=== PATIENT | female | born 1995 | race Caucasian/White ===

== ENCOUNTER 2018-06-26 11:38 | Emergency (ER) | payer BC ==
--- NOTE | 2018-06-26 14:06 | EDPHYS ---
Physician Documentation [facility] Name: Aisha Cristobal Age: 23 yrs Sex: Female : 1995 Arrival Date: 06/26/2018 Time: 11:41 Bed 10 Private MD: None, None ED Physician Florentino Gutierrez HPI: 06/26 14:02 This 23 yrs old Female presents to ER via Ambulatory with complaints of Flu jmm Symptoms. 14:02 The patient or guardian reports cough. Onset: The symptoms/episode began/occurred jmm gradually, 4 day(s) ago. Modifying factors: The symptoms are alleviated by nothing. the symptoms are aggravated by nothing. Associated signs and symptoms: Pertinent positives: sore throat. 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 - Social history:: Smoking status: Patient uses tobacco products, denies chronic smoking, but will smoke occasionally. - Ebola Screening: : Patient negative for fever greater than or equal to 101.5 degrees Fahrenheit, and additional compatible Ebola Virus Disease symptoms Patient denies exposure to infectious person Patient denies travel to an Ebola-affected area in the 21 days before illness onset No symptoms or risks identified at this time. ROS: 14:02 Eyes: Negative for injury, pain, redness, and discharge. jmm 14:02 Neck: Negative for injury, pain, and swelling, Cardiovascular: Negative for chest pain, palpitations, and edema. 14:02 Constitutional: Positive for body aches. 14:02 ENT: Positive for sore throat. 14:02 Respiratory: Positive for cough. 14:02 All other systems are negative. Exam: 14:02 Head/Face: atraumatic. Eyes: EOMI, no conjunctival erythema appreciated jmm 14:02 Constitutional: The patient appears in no acute distress, alert, awake. 14:02 ENT: TM's: erythema, that is moderate, on the left. 14:02 Neck: ROM/movement: is normal. 14:02 Chest/axilla: 14:02 Cardiovascular: Rate: normal, Rhythm: regular, Pulses: no pulse deficits are appreciated. 14:02 Respiratory: the patient does not display signs of respiratory distress, Respirations: normal, Breath sounds: are clear throughout. 14:02 Abdomen/GI: 14:02 Back: ROM is normal. 14:02 Musculoskeletal/extremity: ROM: intact in all extremities. 14:02 Skin: Appearance: Color: normal in color. 14:02 Neuro: Orientation: is normal, Mentation: is normal, Memory: is normal. 14:02 Psych: Behavior/mood is pleasant, cooperative. Vital Signs: 11:56 BP 124 / 71; Pulse 79; Resp 16; Temp 97.5; Pulse Ox 100% ; Weight 72.57 kg; Height 5 iw ft. 2 in. (157.48 cm); Pain 0/10; 11:56 Body Mass Index 29.26 (72.57 kg, 157.48 cm) iw MDM: 14:02 Patient medically screened. [facility] 14:02 Differential diagnosis: bronchitis, flu, URI, om. Data reviewed: vital signs, nurses [facility] notes. Data interpreted: Pulse oximetry: on room air is 100 %. Interpretation: normal. Counseling: I had a detailed discussion with the patient and/or guardian regarding: the historical points, exam findings, and any diagnostic results supporting the discharge/admit diagnosis, the need for outpatient follow up, to return to the emergency department if symptoms worsen or persist or if there are any questions or concerns that arise at home. 06/26 13:39 Order name: Flu; Complete Time: 18:03 ss Administered Medications: No medications were administered Disposition: 16:40 Co-signature as Attending Physician, Florentino Gutierrez MD. rn Disposition: 06/26/18 14:05 Discharged to Home. Impression: Acute serous otitis media, left ear, Acute upper respiratory infection, unspecified. - Condition is Stable. - Discharge Instructions: Otitis Media, Adult, Upper Respiratory Infection, Adult. - Prescriptions for promethazine- DM - take 5 milliliter by ORAL route every 4-6 hours; 120 milliliter. Zithromax Z- Lee 250 mg Oral Tablet - take 1 tablet by ORAL route as directed for 5 days Day 1 - take two (2) tablets one time. Day 2, 3, 4 , 5 take one (1) tablet once daily.; 6 tablet. - Work release form, Medication Reconciliation Form, Thank You Letter, Antibiotic Education, Prescription Opioid Use form. - Follow up: Private Physician; When: 2 - 3 days; Reason: Recheck today's complaints, Continuance of care, Re-evaluation by your physician. Signatures: Dispatcher [employer] EDFer Lobato RN RN Joe Dorado PA PA jmm Williams, Irene, RN RN iw Nieto, Roman, MD MD internal communications writer: (The following items were deleted from the chart) 14:24 14:05 06/26/2018 14:05 Discharged to Home. Impression: Acute serous otitis media, left sg ear; Acute upper respiratory infection, unspecified. Condition is Stable. Forms are Medication Reconciliation Form, Thank You Letter, Antibiotic Education, Prescription Opioid Use. Follow up: Private Physician; When: 2 - 3 days; Reason: Recheck today's complaints, Continuance of care, Re-evaluation by your physician. belkis
--- NOTE | 2018-06-26 14:06 | ER ---
Nurse's Notes [facility] Name: Aisha Cristobal Age: 23 yrs Sex: Female : 1995 Arrival Date: 06/26/2018 Time: 11:41 Bed 10 Private MD: None, None Diagnosis: Acute serous otitis media, left ear;Acute upper respiratory infection, unspecified Presentation: 06/26 11:55 Presenting complaint: Patient states: sore throat, congestion, subj fever, watery eyes iw X 4 days. Transition of care: patient was not received from another setting of care. Onset of symptoms was June 22, 2018. Risk Assessment: Do you want to hurt yourself or someone else? Patient reports no desire to harm self or others. Initial Sepsis Screen: Does the patient meet any 2 criteria? No. Patient's initial sepsis screen is negative. Does the patient have a suspected source of infection? No. Patient's initial sepsis screen is negative. Care prior to arrival: None. 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 - Social history:: Smoking status: Patient uses tobacco products, denies chronic smoking, but will smoke occasionally. - Ebola Screening: : Patient negative for fever greater than or equal to 101.5 degrees Fahrenheit, and additional compatible Ebola Virus Disease symptoms Patient denies exposure to infectious person Patient denies travel to an Ebola-affected area in the 21 days before illness onset No symptoms or risks identified at this time. Screenin:40 Abuse screen: Denies threats or abuse. Denies injuries from another. Nutritional sg screening: No deficits noted. Tuberculosis screening: No symptoms or risk factors identified. Never had TB. Fall Risk None identified. Assessment: 13:40 General: Appears in no apparent distress. comfortable, well groomed, well developed, sg well nourished, Behavior is calm, cooperative, appropriate for age. Pain: Complains of pain in body aches. Neuro: No deficits noted. Cardiovascular: No deficits noted. Patient's skin is warm and dry. Respiratory: Airway is patent Respiratory effort is even, unlabored, Respiratory pattern is regular, symmetrical. GI: No signs and/or symptoms were reported involving the gastrointestinal system. : No signs and/or symptoms were reported regarding the genitourinary system. EENT: Nares are clear bilaterally Oral mucosa is moist. Throat is clear. Derm: No signs and/or symptoms reported regarding the dermatologic system. Skin is pink, warm \T\ dry. Musculoskeletal: Circulation, motion, and sensation intact. Range of motion: intact in all extremities, Swelling absent. Vital Signs: 11:56 BP 124 / 71; Pulse 79; Resp 16; Temp 97.5; Pulse Ox 100% ; Weight 72.57 kg; Height 5 iw ft. 2 in. (157.48 cm); Pain 0/10; 11:56 Body Mass Index 29.26 (72.57 kg, 157.48 cm) ED Course: 11:41 Patient arrived in ED. sb2 11:42 None, None is Private Physician. sb2 11:56 Triage completed. iw 11:56 Arm band placed on. iw 13:31 Joe Pena PA is PHCP. [facility] 13:31 Florentino Gutierrez MD is Attending Physician. [facility] 13:40 Patient has correct armband on for positive identification. Bed in low position. Call sg light in reach. Side rails up X2. Pulse ox on. NIBP on. 13:40 No provider procedures requiring assistance completed. Patient did not have IV access sg during this emergency room visit. 13:43 Fer Felix, RN is Primary Nurse. sg 13:43 Flu and/or RSV swab sent to lab. sg Administered Medications: No medications were administered Outcome: 14:05 Discharge ordered by . belkis 14:20 Discharged to home ambulatory, with family. sg 14:20 Condition: good 14:20 Discharge instructions given to patient, Instructed on discharge instructions, follow up and referral plans. safety practices, Demonstrated understanding of instructions, follow-up care, medications, Prescriptions given X 1. 14:24 Patient left the ED. sg Signatures: Fer Felix RN RN sg Mickail, Joel, PA PA jmm Williams, Irene, RN RN Jennifer Okeefe sb2
== END 2018-06-26 14:24 | disposition home or self-care (01) ==
LOC: ER 11:38
DX: J06.9 Acute upper respiratory infection, unspecified (principal); H65.02 Acute serous otitis media, left ear; Z72.0 Tobacco use
CPT/HCPCS: 87804; 99283

== ENCOUNTER 2020-09-09 03:16 | Emergency (ER) | payer BC ==
--- NOTE | 2020-09-09 04:19 | EDPHYS ---
Physician Documentation [facility] Name: Aisha Cristobal Age: 25 yrs Sex: Female : 1995 Arrival Date: 09/09/2020 Time: 03:17 Bed 18 Private MD: ED Physician Danna Edward HPI: 09/09 04:16 This 25 yrs old Female presents to ER via Ambulatory with complaints of ma2 Breathing Difficulty. 04:16 The patient has shortness of breath during heavy activity. Onset: The symptoms/episode ma2 began/occurred gradually, 2 month(s) ago. Associated signs and symptoms: Pertinent negatives: dizziness, hemoptysis, loss of consciousness, nausea. Severity of symptoms: At their worst the symptoms were very mild in the emergency department the symptoms are unchanged. The patient has experienced similar episodes in the past. 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 - Social history:: Patient/guardian denies using alcohol, street drugs, The patient lives with family, Smoking status: Patient reports the use of cigarette tobacco products, smokes one pack cigarettes per day. Patient uses street drugs, marijuana. - Family history:: not pertinent. ROS: 04:16 Constitutional: Negative for fever, chills, and weight loss, Eyes: Negative for injury, ma2 pain, redness, and discharge. 04:16 All other systems are negative. Exam: 04:16 Constitutional: This is a well developed, well nourished patient who is awake, alert, ma2 and in no acute distress. Head/Face: Normocephalic, atraumatic. Eyes: Pupils equal round and reactive to light, extra-ocular motions intact. Lids and lashes normal. Conjunctiva and sclera are non-icteric and not injected. Cornea within normal limits. Periorbital areas with no swelling, redness, or edema. ENT: Nares patent. No nasal discharge, no septal abnormalities noted. Tympanic membranes are normal and external auditory canals are clear. Oropharynx with no redness, swelling, or masses, exudates, or evidence of obstruction, uvula midline. Mucous membranes moist. Neck: Trachea midline, no thyromegaly or masses palpated, and no cervical lymphadenopathy. Supple, full range of motion without nuchal rigidity, or vertebral point tenderness. No Meningismus. Chest/axilla: Normal chest wall appearance and motion. Nontender with no deformity. No lesions are appreciated. Cardiovascular: Regular rate and rhythm with a normal S1 and S2. No gallops, murmurs, or rubs. Normal PMI, no JVD. No pulse deficits. Respiratory: expiratory wheeze, Lungs have equal breath sounds bilaterally, clear to auscultation and percussion. No rales, rhonchi noted. No increased work of breathing, no retractions or nasal flaring. Abdomen/GI: Soft, non-tender, with normal bowel sounds. No distension or tympany. No guarding or rebound. No evidence of tenderness throughout. Back: No spinal tenderness. No costovertebral tenderness. Full range of motion. Skin: Warm, dry with normal turgor. Normal color with no rashes, no lesions, and no evidence of cellulitis. MS/ Extremity: Pulses equal, no cyanosis. Neurovascular intact. Full, normal range of motion. Neuro: Awake and alert, GCS 15, oriented to person, place, time, and situation. Cranial nerves II-XII grossly intact. Motor strength 5/5 in all extremities. Sensory grossly intact. Cerebellar exam normal. Normal gait. Vital Signs: 03:40 Weight 90.72 kg (R); Height 5 ft. 6 in. (167.64 cm) (R); sg 03:44 Pulse 71 MON; Resp 18 S; Temp 98.6(O); Pulse Ox 98% on R/A; sf 03:46 BP 105 / 42; sf 03:40 Body Mass Index 32.28 (90.72 kg, 167.64 cm) sg MDM: 03:46 Patient medically screened. ma2 04:16 Differential diagnosis: Anemia Anxiety Reaction asthma, reactive airway disease. Data ma2 reviewed: vital signs, nurses notes. Counseling: I had a detailed discussion with the patient and/or guardian regarding: the historical points, exam findings, and any diagnostic results supporting the discharge/admit diagnosis, the presence of at least one elevated blood pressure reading (>120/80) during this emergency department visit, the need for outpatient follow up. Response to treatment: the patient's symptoms have markedly improved after treatment. Administered Medications: 04:22 Drug: Albuterol HFA Inhaler 2 puffs Route: Inhalation; sf 04:33 Follow up: Response: No adverse reaction sf 04:25 Drug: predniSONE 40 mg Route: PO; sf 04:33 Follow up: Response: No adverse reaction sf Disposition: 09/09/20 04:18 Discharged to Home. Impression: Asthma. - Condition is Stable. - Discharge Instructions: Asthma, Adult, [id number]-[id number]. - Prescriptions for Medrol (Lee) 4 mg Oral Tablets, Dose Pack - take 1 tablet by ORAL route as directed - follow package instructions; 1 packet. Albuterol Sulfate 90 mcg/actuation - inhale 1-2 puff by INHALATION route every 4-6 hours; 1 Inhaler. - Medication Reconciliation Form, Thank You Letter, Antibiotic Education, Prescription Opioid Use form. - Follow up: Private Physician; When: Tomorrow; Reason: If symptoms return, Continuance of care. Signatures: Fer Felix RN RN Danna Edward MD MD ma2 Fer Claros RN RN sf Corrections: (The following items were deleted from the chart) 04:34 04:18 09/09/2020 04:18 Discharged to Home. Impression: Asthma. Condition is Stable. sf Forms are Medication Reconciliation Form, Thank You Letter, Antibiotic Education, Prescription Opioid Use. Follow up: Private Physician; When: Tomorrow; Reason: If symptoms return, Continuance of care. ma2
--- NOTE | 2020-09-09 04:19 | ER ---
Nurse's Notes [facility] Name: Aisha Cristobal Age: 25 yrs Sex: Female : 1995 Arrival Date: 09/09/2020 Time: 03:17 Bed 18 Private MD: Diagnosis: Asthma Presentation: 09/09 03:30 Chief complaint: Patient states: Erin been having wheezing and shortness of breath for 2 sg days now, no other symptoms reported for triage at this time. Coronavirus screen: Client denies travel out of the [place] in the last 14 days. Client presents with at least one sign or symptom that may indicate coronavirus-19. Standard/surgical mask placed on the client. Provider contacted for isolation considerations. The client denies any previous COVID testing. Ebola Screen: Patient negative for fever greater than or equal to 101.5 degrees Fahrenheit, and additional compatible Ebola Virus Disease symptoms Patient denies exposure to infectious person. Patient denies travel to an Ebola-affected area in the 21 days before illness onset. No symptoms or risks identified at this time. Initial Sepsis Screen: Does the patient meet any 2 criteria? No. Patient's initial sepsis screen is negative. Does the patient have a suspected source of infection? Yes: Productive cough/pneumonia. Risk Assessment: Do you want to hurt yourself or someone else? Patient reports no desire to harm self or others. Onset of symptoms was September 09, 2020. Care prior to arrival: None. Transition of care: patient was not received from another setting of care. 03:30 Acuity: DOROTHY 3 sg 03:30 Method Of Arrival: Ambulatory sg Triage Assessment: 03:45 Respiratory: Onset: The symptoms/episode began/occurred over the last couple weeks. 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 - Social history:: Patient/guardian denies using alcohol, street drugs, The patient lives with family, Smoking status: Patient reports the use of cigarette tobacco products, smokes one pack cigarettes per day. Patient uses street drugs, marijuana. - Family history:: not pertinent. Screenin:54 Abuse screen: Denies threats or abuse. Denies injuries from another. Nutritional sf screening: No deficits noted. Tuberculosis screening: No symptoms or risk factors identified. Never had TB. Possible symptoms: cough for more than 2 weeks, Risk factors: None. Fall Risk None identified. No fall in past 12 months (0 pts). No secondary diagnosis (0 pts). No IV (0 pts). Ambulatory Aid- None/Bed Rest/Nurse Assist (0 pts). Gait- Normal/Bed Rest/Wheelchair (0 pts) Mental Status- Oriented to own ability (0 pts). Total Zacarias Fall Scale indicates No Risk (0-24 pts). Assessment: 03:45 General: Appears in no apparent distress. uncomfortable, Behavior is calm, cooperative, sf appropriate for age, Denies fever, chills. Pain: Denies pain. Neuro: No deficits noted. Level of Consciousness is awake, alert, Oriented to person, place, time, situation, Appropriate for age. Cardiovascular: No deficits noted. Denies chest pain, palpitations, Capillary refill < 3 seconds Patient's skin is warm and dry. Rhythm is sinus rhythm. Respiratory: Reports shortness of breath at rest cough that is non-productive, dry, Airway is patent Respiratory effort is even, increased work of breathing Breath sounds with wheezes bilaterally. the patient has mild shortness of breath Denies pain with respiration, pain with cough. Vital Signs: 03:40 Weight 90.72 kg (R); Height 5 ft. 6 in. (167.64 cm) (R); sg 03:44 Pulse 71 MON; Resp 18 S; Temp 98.6(O); Pulse Ox 98% on R/A; sf 03:46 BP 105 / 42; sf 03:40 Body Mass Index 32.28 (90.72 kg, 167.64 cm) sg ED Course: 03:17 Patient arrived in ED. cf2 03:30 Arm band placed on. sg 03:34 Fer Claros, CARO is Primary Nurse. sf 03:35 Bed in low position. Call light in reach. Side rails up X 1. color television console monitor on. Pulse sf ox on. NIBP on. 03:40 Triage completed. sg 03:46 Danna Edward MD is Attending Physician. ma2 04:32 No provider procedures requiring assistance completed. Patient did not have IV access sf during this emergency room visit. Administered Medications: 04:22 Drug: Albuterol HFA Inhaler 2 puffs Route: Inhalation; sf 04:33 Follow up: Response: No adverse reaction sf 04:25 Drug: predniSONE 40 mg Route: PO; sf 04:33 Follow up: Response: No adverse reaction sf Outcome: 04:18 Discharge ordered by . ma2 04:33 Discharged to home ambulatory. sf 04:33 Condition: improved 04:33 Discharge instructions given to patient, Instructed on discharge instructions, follow up and referral plans. medication usage, Demonstrated understanding of instructions, follow-up care, medications, Prescriptions given X 2. 04:34 Patient left the ED. sf Signatures: Fer Felix, CARO RN Danna Edward MD MD [facility] Riley Marquez [facility] Fer Claros RN RN sf Corrections: (The following items were deleted from the chart) 03:53 03:45 : sf sf
[2020-09-09] MEDS ORDERED: predniSONE 20 MG TAB ONE (04:37)
[2020-09-09] MEDS ORDERED: ALBUTEROL INHALER 60 PUFF/8 GM IH ONE (04:37)
[2020-09-09 04:40] VITALS: TEMP 98.6; O2SAT 98
[2020-09-09 04:41] VITALS: BP 105/42
--- OUTSIDE RECORDS SUMMARY | 2020-09-10 02:41 | XMS REPORT | Continuity of Care Document ---
:1995 Author Organization [facility] t Address [address] [place] [address] Care Team Providers Name Role Phone Unavailable Unavailable Unavailable Payers Payer Name Policy Type Policy Number Effective Date Expiration Date S ource Problems This patient has no known problems. Allergies, Adverse Reactions, Alerts Allergy Allergy Status Severity Reaction(s) Onset Inactive Treating Comm ents Source Name Type Date Date Clinician [place] DA Active U 2018-08 [facility] ins 08-19 [facility] 00:00: e 00 [facility] Medications This patient has no known medications. Procedures This patient has no known procedures. Results Test Description Test Time Test Comments Results Result Comments Source URINALYSIS COMPLETE 2019-06-19 21:31:00 Test Item Value Reference Range Interpretation Comme nts UA COLOR (test code = COLU) YELLOW YELLOW UA APPEARANCE (test code = APPU) Cloudy CLEAR A UA GLUCOSE DIPSTICK (test code = DGLUU) NEGATIVE mg/dL NEGATIVE UA BILIRUBIN DIPSTICK (test code = BILU) NEGATIVE mg/dL NEGATIVE UA KETONE DIPSTICK (test code = KETU) NEGATIVE mg/dL NEGATIVE UA SPECIFIC GRAVITY (test code = SGU) 1.020 1.001-1.035 UA BLOOD DIPSTICK (test code = RESHMA) 0.03 mg/dL (Trace) mg/dL NEGATI VE A UA PH DIPSTICK (test code = DYLON) 6.5 5.0-8.0 UA PROTEIN DIPSTICK (test code = PROU) 20 (Trace) mg/dL NEGATIVE A UA UROBILINIOGEN DIPSTICK (test code = URO) Normal mg/dL NEGATIVE UA NITRITE DIPSTICK (test code = RODERICK) NEGATIVE NEGATIVE UA LEUKOCYTE ESTERASE W REFLEX (test code = 500 Haley/uL (3+) Haley/uL NEGATIVE A LEUUR) UA WBC (test code = WBCU) 101-150 per HPF 0-5 A UA RBC (test code = RBCU) 21-50 #/HPF 0-5 UA EPITHELIAL CELLS (test code = EPIU) MANY per HPF FEW UA BACTERIA (test code = BACU) MODERATE #/HPF NONE A UA MUCUS (test code = MUCU) FEW #/LPF FEW Urine Source? Clean CatchDRUGS OF ABUSE SCREEN [id number] 21:31:00 Test Item Value Reference Range Interpretation Comments URN COCAINE (test NEGATIVE <300 ng/mL code = COCAURN) URN CANNABINOIDS POSITIVE <50 ng/mL A This test p rovides only a (test code = preliminary mady t result. CANNABURN) A morespecific alternate chemical method must be used in order t oobtain a confirmed kelly tical result. Gas chromatography/ mass spectrometry (G C/MS) is thepreferred co nfirmatory method. Other chemical confirmationmet hods are available. Cli nical consideration a nd professional ju dgment should be appli ed to any drug of abusete st result, particularly wh en preliminary pos itive resultsare used.Unconfirme d screening resul ts must not be used fornon-medical purposes (e.g., employme nt testing, legalt esting). URN AMPHETAMINE (test NEGATIVE <1000 ng/mL code = AMPHETURN) URN BARBITURATE (test NEGATIVE <200 ng/mL code = BARBITURN) URN BENZODIAZEPINE NEGATIVE <200 ng/mL (test code = BENZOURN) URN OPIATES (test NEGATIVE <300 ng/mL code = OPIATURN) URN PHENCYCLIDINE NEGATIVE <25 ng/mL (PCP) (test code = PHENCURN) URN METHADONE (test NEGATIVE <300 ng/mL code = METHAURN) Urine Source? Clean CatchBASIC METABOLIC [id number] 21:09:00 Test Item Value Reference Range Interpretation Comments SODIUM (test code = 138 mmol/L 136-145 N NA) POTASSIUM (test code 3.8 mmol/L 3.5-5.1 N = K) CHLORIDE (test code = 106.0 mmol/L 98-107 N CL) CARBON DIOXIDE (test 24.0 mmol/L 21-32 N code = CO2) ANION GAP (test code 11.8 10-20 N = GAP) GLUCOSE (test code = 91 mg/dL 74-106 N GLU) BLOOD UREA NITROGEN 15 mg/dL 7-18 N (test code = BUN) GLOMERULAR FILTRATION > 60 mL/min >=60 Estima quynh GFR by RATE (test code = using Elizabeth fied MDRD GFR) formula.Chronic kidney disease is defined as eith er kidney damageor GFR <60 mL/min/1.73 m2 for >3 months. CREATININE (test code 0.70 mg/dL 0.55-1.02 N Note change in = CREAT) reference range due to change in reagent. BUN/CREATININE RATIO 20.4 10-20 H (test code = BUN/CREA) CALCIUM (test code = 9.3 mg/dL 8.5-10.1 N CA) HEPATIC FUNCTION [id number] 21:09:00 Test Item Value Reference Range Interpretation Comments TOTAL PROTEIN (test 8.1 gram/dL 6.4-8.2 N code = PROT) ALBUMIN (test code = 3.9 g/dL 3.4-5.0 N ALB) GLOBULIN (test code = 4.2 gram/dL 2.7-4.2 N GLOB) ALBUMIN/GLOBULIN RATIO 0.9 0.75-1.50 N (test code = A/G) BILIRUBIN TOTAL (test 0.40 mg/dL 0.0-1.0 N code = BILT) BILIRUBIN DIRECT (test 0.11 mg/dL 0.0-0.20 N code = BILD) SGOT/AST (test code = 81 IUnit/L 15-37 H AST) SGPT/ALT (test code = 102 IUnit/L 12-78 H ALT) ALKALINE PHOSPHATASE 124 IUnit/L 45-117 H Note change in TOTAL (test code = reference range due ALKP) to change in reagent. [id number] 21:09:00 Test Item Value Reference Range Interpretation Comments ALCOHOL (test code = 6 mg/dL 0.0-3.0 H ------- INTERPRET ALC) TOREY DATA NOTE: POSITIVE SCREEN ING RESULTS SHOULD BE CONSI DERED PRESUMPTIVE.WHE N COLLECTED FOR MEDICAL PUR POSES ONLY. SPECIMEN WILL NOTBE COLLECTED BY AIN OF CUSTODY.IF A CO NFIRMATION OF POSITIVE RES ULTS IS DESIRED, ACONFI RMATION TEST MUST BE RE QUESTED BY THE PHYSICIAN Tammie T ANADDITIONAL [place] ARGE TO THE PATIENT. HCG SERUM [id number] 21:09:00 Test Item Value Reference Range Interpretation Comments HCG SERUM QUAL (test NEGATIVE NEGATIVE This HC GQL test is NOT code = HCGQL) applicable for MALE patients.Check with nurse about probable order error.If Tumor Marker Test needed, nu rse should order test "HCG TU"(Test #550.20649)---- - BASIC METABOLIC [id number] 20:56:00 Test Item Value Reference Range Interpretation Comments SODIUM (test code = NA) 138 mmol/L 136-145 N POTASSIUM (test code = K) 3.8 mmol/L 3.5-5.1 N CHLORIDE (test code = CL) 106.0 mmol/L 98-107 N CARBON DIOXIDE (test code = CO2) mmol/L 21-32 ANION GAP (test code = GAP) 10-20 GLUCOSE (test code = GLU) mg/dL 74-106 BLOOD UREA NITROGEN (test code = mg/dL 7-18 BUN) GLOMERULAR FILTRATION RATE (test mL/min >=60 code = GFR) CREATININE (test code = CREAT) mg/dL 0.55-1.02 BUN/CREATININE RATIO (test code 10-20 = BUN/CREA) CALCIUM (test code = CA) mg/dL 8.5-10.1 HEPATIC FUNCTION [id number] 20:56:00 Test Item Value Reference Range Interpretation Comments TOTAL PROTEIN (test code = PROT) gram/dL 6.4-8.2 ALBUMIN (test code = ALB) g/dL 3.4-5.0 GLOBULIN (test code = GLOB) gram/dL 2.7-4.2 ALBUMIN/GLOBULIN RATIO (test code = 0.75-1.50 A/G) BILIRUBIN TOTAL (test code = BILT) mg/dL 0.0-1.0 BILIRUBIN DIRECT (test code = BILD) mg/dL 0.0-0.20 SGOT/AST (test code = AST) IUnit/L 15-37 SGPT/ALT (test code = ALT) IUnit/L 12-78 ALKALINE PHOSPHATASE TOTAL (test IUnit/L 45-117 code = ALKP) [id number] 20:56:00 Test Item Value Reference Range Interpretation Comments ALCOHOL (test code = ALC) mg/dL 0-3 URINALYSIS [id number] 20:55:00 Test Item Value Reference Range Interpretation Comments UA COLOR (test code = YELLOW YELLOW COLU) UA APPEARANCE (test code Cloudy CLEAR A = APPU) UA GLUCOSE DIPSTICK (test NEGATIVE mg/dL NEGATIVE code = DGLUU) UA BILIRUBIN DIPSTICK NEGATIVE mg/dL NEGATIVE (test code = BILU) UA KETONE DIPSTICK (test NEGATIVE mg/dL NEGATIVE code = KETU) UA SPECIFIC GRAVITY (test 1.020 1.001-1.035 code = SGU) UA BLOOD DIPSTICK (test 0.03 mg/dL (Trace) NEGATIVE A code = RESHMA) mg/dL UA PH DIPSTICK (test code 6.5 5.0-8.0 = DYLON) UA PROTEIN DIPSTICK (test 20 (Trace) mg/dL NEGATIVE A code = PROU) UA UROBILINIOGEN DIPSTICK Normal mg/dL NEGATIVE (test code = URO) UA NITRITE DIPSTICK (test NEGATIVE NEGATIVE code = RODERICK) UA LEUKOCYTE ESTERASE W 500 Haley/uL (3+) NEGATIVE A REFLEX (test code = Haley/uL LEUUR) UA WBC (test code = WBCU) 101-150 per HPF 0-5 A UA RBC (test code = RBCU) 21-50 #/HPF 0-5 UA EPITHELIAL CELLS (test MANY per HPF FEW code = EPIU) UA BACTERIA (test code = MODERATE #/HPF NONE A BACU) UA MUCUS (test code = FEW #/LPF FEW MUCU) Urine Source? Clean CatchDRUGS OF ABUSE SCREEN [id number] 20:55:00 Test Item Value Reference Range Interpretation Comments URN COCAINE (test code = COCAURN) <300 ng/mL URN CANNABINOIDS (test code = <50 ng/mL CANNABURN) URN AMPHETAMINE (test code = AMPHETURN) <1000 ng/mL URN BARBITURATE (test code = BARBITURN) <200 ng/mL URN BENZODIAZEPINE (test code = <200 ng/mL BENZOURN) URN OPIATES (test code = OPIATURN) <300 ng/mL URN PHENCYCLIDINE (PCP) (test code = <25 ng/mL PHENCURN) URN METHADONE (test code = METHAURN) <300 ng/mL Urine Source? Clean CatchURINALYSIS [id number] 20:53:00 Test Item Value Reference Range Interpretation Comments UA COLOR (test code = YELLOW YELLOW COLU) UA APPEARANCE (test code Cloudy CLEAR A = APPU) UA GLUCOSE DIPSTICK (test NEGATIVE mg/dL NEGATIVE code = DGLUU) UA BILIRUBIN DIPSTICK NEGATIVE mg/dL NEGATIVE (test code = BILU) UA KETONE DIPSTICK (test NEGATIVE mg/dL NEGATIVE code = KETU) UA SPECIFIC GRAVITY (test 1.020 1.001-1.035 code = SGU) UA BLOOD DIPSTICK (test 0.03 mg/dL (Trace) NEGATIVE A code = RESHMA) mg/dL UA PH DIPSTICK (test code 6.5 5.0-8.0 = DYLON) UA PROTEIN DIPSTICK (test 20 (Trace) mg/dL NEGATIVE A code = PROU) UA UROBILINIOGEN DIPSTICK Normal mg/dL NEGATIVE (test code = URO) UA NITRITE DIPSTICK (test NEGATIVE NEGATIVE code = RODERICK) UA LEUKOCYTE ESTERASE W 500 Haley/uL (3+) NEGATIVE A REFLEX (test code = Haley/uL LEUUR) UA WBC (test code = WBCU) per HPF 0-5 UA RBC (test code = RBCU) per HPF 0-5 UA EPITHELIAL CELLS (test per HPF Few code = EPIU) UA BACTERIA (test code = per HPF NONE BACU) Urine Source? Clean CatchDRUGS OF ABUSE SCREEN [id number] 20:53:00 Test Item Value Reference Range Interpretation Comments URN COCAINE (test code = COCAURN) <300 ng/mL URN CANNABINOIDS (test code = <50 ng/mL CANNABURN) URN AMPHETAMINE (test code = AMPHETURN) <1000 ng/mL URN BARBITURATE (test code = BARBITURN) <200 ng/mL URN BENZODIAZEPINE (test code = <200 ng/mL BENZOURN) URN OPIATES (test code = OPIATURN) <300 ng/mL URN PHENCYCLIDINE (PCP) (test code = <25 ng/mL PHENCURN) URN METHADONE (test code = METHAURN) <300 ng/mL Urine Source? Clean CatchCBC W/O [id number] 20:50:00 Test Item Value Reference Range Interpretation Comments WHITE BLOOD CELL (test code = K/mm3 4.5-12.5 WBC) RED BLOOD CELL (test code = RBC) mill/mm3 3.7-5.2 HEMOGLOBIN (test code = HGB) 12.5 gram/dL 11.5-15.5 N HEMATOCRIT (test code = HCT) 40.1 % 36.0-46.0 N MEAN CELL VOLUME (test code = fL 80-98 MCV) MEAN CELL HGB (test code = MCH) picogram 27.0-33.0 MEAN CELL HGB CONCETRATION (test gram/dL 33.0-36.0 code = MCHC) RED CELL DISTRIBUTION WIDTH % 11.6-16.2 (test code = RDW) PLATELET COUNT (test code = PLT) K/mm3 150-450 MEAN PLATELET VOLUME (test code fL 6.7-11.0 = MPV) CBC W/O [id number] 20:50:00 Test Item Value Reference Range Interpretation Comments WHITE BLOOD CELL (test code = 10.2 K/mm3 4.5-12.5 N WBC) RED BLOOD CELL (test code = 4.41 mill/mm3 3.7-5.2 N RBC) HEMOGLOBIN (test code = HGB) 12.5 gram/dL 11.5-15.5 N HEMATOCRIT (test code = HCT) 40.1 % 36.0-46.0 N MEAN CELL VOLUME (test code = 90.9 fL 80-98 N MCV) MEAN CELL HGB (test code = MCH) 28.3 picogram 27.0-33.0 N MEAN CELL HGB CONCETRATION 31.2 gram/dL 33.0-36.0 L (test code = MCHC) RED CELL DISTRIBUTION WIDTH 14.1 % 11.6-16.2 N (test code = RDW) PLATELET COUNT (test code = 257 K/mm3 150-450 N PLT) MEAN PLATELET VOLUME (test code 9.7 fL 6.7-11.0 N = MPV)
== END 2020-09-09 04:34 | disposition home or self-care (01) ==
LOC: ER 03:16
DX: J45.909 Unspecified asthma, uncomplicated (principal); F17.210 Nicotine dependence, cigarettes, uncomplicated; Z88.0 Allergy status to penicillin
CPT/HCPCS: 99284; J7512